=== PATIENT | male | born 1960 ===

== ENCOUNTER 2016-08-01 11:52 | Emergency (ER) | payer SELFPAY ==
--- NOTE | 2016-08-01 13:51 | ED CLINICAL REPORT ---
Clinical Report - Physicians/Mid Levels [facility] [address] [place] [address] 08/01/2016 11:55 [id number] Time Seen: 12:05 Aug 01 2016. Arrived- By private vehicle. Historian- patient. HISTORY OF PRESENT ILLNESS Chief Complaint: Injury to the right middle finger. The injury happened just prior to arrival. Occurred at home. The patient sustained a laceration. Patient is experiencing mild pain. Patient denies injury to the head or neck. ( Sustained lac on corner of metal. Some bleeding. Controlled.). REVIEW OF SYSTEMS The patient sustained a laceration. No tingling or numbness. All systems otherwise negative, except as recorded above. PAST HISTORY The patient's dominant hand is the right. He has not had a prior injury to the same area. Tetanus immunization status is up-to-date. Problems: Diabetes Mellitus. Medications: [id number] Oral, day. MetFORMIN HCl Oral 1000 mg , 2x a day. Allergies: No Known Drug Allergy. SOCIAL HISTORY Never smoker. Alcohol use. No drug use. ADDITIONAL NOTES The nursing notes have been reviewed. PHYSICAL EXAM Vital Signs: 08/01/2016 12:04 BP: 132/77. HR: 80. RR: 20. O2 saturation: 99%. Temp: 98.7 F. Pain level now: 1/10. Appearance: Alert. Head: Head atraumatic. ENT: Ears normal. Nose normal. CVS: Normal heart rate and rhythm. Heart sounds normal. Respiratory: No respiratory distress. Breath sounds normal. No decreased air movement or chest wall injury. Abdomen: No visible injury. Skin: Skin warm. Extremities: Right middle finger: superficial 0.5 cm laceration- SEE LACERATION PROCEDURE NOTE; (at dip at ulnar aspect, partial thickness, good distal rom and sensation, no fb, no erythema). No wrist injury. Neuro, Vascular and Tendons: Vascular status intact. Motor intact. Neuro: Disoriented. PROGRESS AND PROCEDURES Laceration Repair: Time: 13:20 Aug 01 2016. Location: (r. middle finger). Time-out completed immediately before the procedure. Length: 1 cm. Complexity: simple (local anesthesia used and sutured). Wound depth/shape- subcutaneous and linear. Wound is clean. Distal neuro/vascular/tendon status normal. No sensory deficit or motor deficit distally. Anesthesia provided by digital block using 0.50% Marcaine. Prepped with Betadine. Wound explored, cleansed and irrigated. Closure of superficial layer: interrupted 5-0 (4 sutures, non absorb). Post-procedure. Bleeding is controlled and neuro-vascular status is intact distal to the wound. Dressing applied. Tetanus immunization up-to-date. Course of Care: Patient was full range of motion in the ER, no signs of secondary infectious process. Very stable. No signs of foreign body. No osseous tenderness. tetanus up-to-date. Patient is stable. Symptoms better. Patient/family counseled. Disposition: Discharged. CLINICAL IMPRESSION Single superficial laceration to the right middle finger.No foreign body present or right fingernail injury. INSTRUCTIONS Protect wound and keep wound area clean. Keep wounds dry. You may wash wounds briefly, then dry. Apply bacitracin twice daily. Limit use of your right hand for five days. ( [facility]). OTC Medications: Take OTC medications according to label instructions. Available over the counter. Acetaminophen (available over the counter): take according to label instructions. Motrin (available over the counter): take according to label instructions. Follow-up: Follow up with your doctor in seven days for suture removal. (Electronically signed by Vivien Melgoza P.A.-C 08/01/2016 13:21)
--- NOTE | 2016-08-01 13:51 | ED CLINICAL REPORT ---
Clinical Report - Physicians/Mid Levels [facility] [address] [place] [address] 08/01/2016 11:55 [id number] Time Seen: 12:05 Aug 01 2016. Arrived- By private vehicle. Historian- patient. HISTORY OF PRESENT ILLNESS Chief Complaint: Injury to the right middle finger. The injury happened just prior to arrival. Occurred at home. The patient sustained a laceration. Patient is experiencing mild pain. Patient denies injury to the head or neck. ( Sustained lac on corner of metal. Some bleeding. Controlled.). REVIEW OF SYSTEMS The patient sustained a laceration. No tingling or numbness. All systems otherwise negative, except as recorded above. PAST HISTORY The patient's dominant hand is the right. He has not had a prior injury to the same area. Tetanus immunization status is up-to-date. Problems: Diabetes Mellitus. Medications: [id number] Oral, day. MetFORMIN HCl Oral 1000 mg , 2x a day. Allergies: No Known Drug Allergy. SOCIAL HISTORY Never smoker. Alcohol use. No drug use. ADDITIONAL NOTES The nursing notes have been reviewed. PHYSICAL EXAM Vital Signs: 08/01/2016 12:04 BP: 132/77. HR: 80. RR: 20. O2 saturation: 99%. Temp: 98.7 F. Pain level now: 1/10. Appearance: Alert. Head: Head atraumatic. ENT: Ears normal. Nose normal. CVS: Normal heart rate and rhythm. Heart sounds normal. Respiratory: No respiratory distress. Breath sounds normal. No decreased air movement or chest wall injury. Abdomen: No visible injury. Skin: Skin warm. Extremities: Right middle finger: superficial 0.5 cm laceration- SEE LACERATION PROCEDURE NOTE; (at dip at ulnar aspect, partial thickness, good distal rom and sensation, no fb, no erythema). No wrist injury. Neuro, Vascular and Tendons: Vascular status intact. Motor intact. Neuro: Disoriented. PROGRESS AND PROCEDURES Laceration Repair: Time: 13:20 Aug 01 2016. Location: (r. middle finger). Time-out completed immediately before the procedure. Length: 1 cm. Complexity: simple (local anesthesia used and sutured). Wound depth/shape- subcutaneous and linear. Wound is clean. Distal neuro/vascular/tendon status normal. No sensory deficit or motor deficit distally. Anesthesia provided by digital block using 0.50% Marcaine. Prepped with Betadine. Wound explored, cleansed and irrigated. Closure of superficial layer: interrupted 5-0 (4 sutures, non absorb). Post-procedure. Bleeding is controlled and neuro-vascular status is intact distal to the wound. Dressing applied. Tetanus immunization up-to-date. Course of Care: Patient was full range of motion in the ER, no signs of secondary infectious process. Very stable. No signs of foreign body. No osseous tenderness. tetanus up-to-date. Patient is stable. Symptoms better. Patient/family counseled. Disposition: Discharged. CLINICAL IMPRESSION Single superficial laceration to the right middle finger.No foreign body present or right fingernail injury. INSTRUCTIONS Protect wound and keep wound area clean. Keep wounds dry. You may wash wounds briefly, then dry. Apply bacitracin twice daily. Limit use of your right hand for five days. ( [facility]). OTC Medications: Take OTC medications according to label instructions. Available over the counter. Acetaminophen (available over the counter): take according to label instructions. Motrin (available over the counter): take according to label instructions. Follow-up: Follow up with your doctor in seven days for suture removal. (Electronically signed by Vivien Melgoza P.A.-C 08/01/2016 13:21)
--- NOTE | 2016-08-01 13:52 | ED ORDER SUMMARY ---
..... Patient: AKIL FREEMAN OrderSheet [facility] VisitID: [id number] [address] [place] [address] 56y, M Registration Date/Time: 08/01/2016 ORDER SHEET Weight: 115.6 kg (stated) Allergies: No Known Drug Allergy GENERAL ORDERS: Wound Irrigation (12:53 08/01/2016 Ricardo Aguilar) (Ack 13:31 SRoberts R.N.) (19:15 Tiffanie R.Charlene.) MEDICATION ORDERS: IV FLUIDS: ORDER SHEET NOTES: [Electronically signed by Vivien Melgoza P.A.-C (13:21 08/01/2016)] [Electronically signed by Marlen Wells R.N. (19:23 08/01/2016)] [Electronically locked/signed by Marlen Wells R.N. (19:23 08/01/2016)]
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
--- NOTE | 2016-08-01 13:52 | ED ORDER SUMMARY ---
..... Patient: AKIL FREEMAN OrderSheet [facility] VisitID: [id number] [address] [place] [address] 56y, M Registration Date/Time: 08/01/2016 ORDER SHEET Weight: 115.6 kg (stated) Allergies: No Known Drug Allergy GENERAL ORDERS: Wound Irrigation (12:53 08/01/2016 Ricardo Aguilar) (Ack 13:31 SRoberts R.N.) (19:15 Tiffanie R.Charlene.) MEDICATION ORDERS: IV FLUIDS: ORDER SHEET NOTES: [Electronically signed by Vivien Melgoza P.A.-C (13:21 08/01/2016)] [Electronically signed by Marlen Wells R.N. (19:23 08/01/2016)] [Electronically locked/signed by Marlen Wells R.N. (19:23 08/01/2016)]
--- NOTE | 2016-08-01 19:24 | ED MED RECONCILIATION SUMMARY ---
Patient: AKIL FREEMAN Medication Reconciliation Report [facility] VisitID: [id number] [address] [place] [address] 56y, M Registration Date/Time: 08/01/2016 Weight: 115.6 kg Height/Length: 67 in. BMI: 40.0 ALLERGIES: No Known Drug Allergy The patient's Home Medications are listed below: THE FOLLOWING MEDICATIONS NEED TO BE RECONCILED: [id number] Oral, day MetFORMIN HCl Oral 1000 mg , 2x a day The source(s) of the original Home Medication information: patient The following Medications were given to the patient in the Emergency Department: None. The following Medications were prescribed to the patient: Take OTC medications according to label instructions. Available over the counter. -- Vivien Melgoza, P.A.-C Acetaminophen (available over the counter): take according to label instructions. -- Vivien Melgoza, P.A.-C Motrin (available over the counter): take according to label instructions. -- Vivien Melgoza, P.A.-C
--- NOTE | 2016-08-01 19:24 | ED MAR SUMMARY ---
..... Medication Administration Record [facility] [address] [place], [place] [id number] Patient: AKIL FREEMAN Visit ID: [id number] 56y, M Weight: 115.6 kg Height/Length: 67 in BMI: 40 ALLERGIES: No Known Drug Allergy
--- NOTE | 2016-08-01 19:24 | ED MED RECONCILIATION SUMMARY ---
Patient: AKIL FREEMAN Medication Reconciliation Report [facility] VisitID: [id number] [address] [place] [address] 56y, M Registration Date/Time: 08/01/2016 Weight: 115.6 kg Height/Length: 67 in. BMI: 40.0 ALLERGIES: No Known Drug Allergy The patient's Home Medications are listed below: THE FOLLOWING MEDICATIONS NEED TO BE RECONCILED: [id number] Oral, day MetFORMIN HCl Oral 1000 mg , 2x a day The source(s) of the original Home Medication information: patient The following Medications were given to the patient in the Emergency Department: None. The following Medications were prescribed to the patient: Take OTC medications according to label instructions. Available over the counter. -- Vivien Melgoza, P.A.-C Acetaminophen (available over the counter): take according to label instructions. -- Vivien Melgoza, P.A.-C Motrin (available over the counter): take according to label instructions. -- Vivien Melgoza, P.A.-C
--- NOTE | 2016-08-01 19:24 | ED DISCHARGE INSTRUCTIONS ---
Patient: AKIL FREEMAN General Instructions [facility] VisitID: [id number] [place] [address] 56y, M Registration Date/Time: 08/01/2016 Single superficial laceration to the right middle finger.No foreign body present or right fingernail injury. INSTRUCTIONS Protect wound and keep wound area clean. Keep wounds dry. You may wash wounds briefly, then dry. Apply bacitracin twice daily. Limit use of your right hand for five days. ( [facility]). OTC Medications: Take OTC medications according to label instructions. Available over the counter. Acetaminophen (available over the counter): take according to label instructions. Motrin (available over the counter): take according to label instructions. Follow-up: Follow up with your doctor in seven days for suture removal. ADDITIONAL INFORMATION Laceration, Extremity (Sutures, [place], Or Tape) A laceration is a cut through the skin. This will usually require stitches (sutures) or john if it is deep. Minor cuts may be treated with surgical tape closures. Home care The following guidelines will help you care for your laceration at home: Keep the wound clean and dry. If a bandage was applied and it becomes wet or dirty, replace it. Otherwise, leave it in place for the first 24 hours, then change it once a day or as directed. If stitches or john were used, clean the wound daily: After removing the bandage, wash the area with soap and water. Use a wet cotton swab to loosen and remove any blood or crust that forms. After cleaning, keep the wound clean and dry. Talk with your doctor before applying any antibiotic ointment to the wound. Reapply the bandage. You may remove the bandage to shower as usual after the first 24 hours, but do not soak the area in water (no swimming) until the stitches or john are removed. If surgical tape closures were used, keep the area clean and dry. If it becomes wet, blot it dry with a towel. The doctor may prescribe an antibiotic cream or ointment to prevent infection. Do not stop taking this medication until you have finished the prescribed course or the doctor tells you to stop. The doctor may also prescribe medications for pain. Follow the doctors instructions for taking these medications. If you have chronic liver or kidney disease or ever had a stomach ulcer or GI bleeding, talk with your doctor before using these medicines. Follow-up care Follow up with your health care provider. Most skin wounds heal within ten days. However, an infection may sometimes occur despite proper treatment. Therefore, check the wound daily for the signs of infection listed below. Stitches and john should be removed within 714 days. If surgical tape closures were used, you may remove them after 10 days, if they have not fallen off by then. Notify your doctor if you notice persistent numbness or weakness in the injured extremity. (Note:A radiologist will review any X-rays that were taken. We will notify you of any new findings that may affect your care.) When to seek medical care Get prompt medical attention if any of these occur: Increasing pain in the wound Redness, swelling, or pus coming from the wound Fever of 100.4F (38C) or higher, or as directed by your health care provider If stitches or john come apart or fall out before your next appointment If the surgical tape closures fall off within seven days, or the wound edges re-open Bleeding not controlled by direct pressure Laceration: Will There Be A Scar? A laceration is a cut through one or more layers of the skin. The goal of emergency treatment is to clean the wound and close it to prevent infection, control bleeding and speed healing. Cuts heal because the body is able to repair the skin by "sealing" the edges together with collagen, a kind of "skin cement." How deep your cut is, its location on your body, your age and the way your skin heals all determine how visible the final scar will be. Some persons tend to heal with more scar tissue than others. This cut will probably heal similar to other cuts you have had in the past. What You Can Do: There are a few simple things that you can do to limit the amount of scar that forms: 1) PREVENT INFECTION: An infected wound makes a bigger scar. Keep the wound clean and dry. Change the dressing and apply any ointment/cream as directed. 2) MASSAGE THE WOUND:After the stitches have been removed: Use a moisturizing cream or lotion containing Aloe or Vitamin E Oil and gently massage the skin around the wound with your fingertips (wash your hands first!). Do this twice a day for the first two weeks, then once a day for a month. This will increase the flow of oxygen and blood to the wound and prevent excess scar tissue from building up. 3) AVOID SUN EXPOSURE: During the first six months, avoid sun exposure since the scar may sharma a much darker color than the skin around it. When in the sun, use SPF #50 (or greater) sun block on the scar, or cover the area with a hat or clothing. What To Expect: -- The cut will be sealed within 2 days and will be strong within 5-10 days. However, it will take at least SIX MONTHS for it to be fully healed. -- During the FIRST THREE MONTHS, you may notice the scar line getting more red or purple in color. The scar may become raised. The skin around the wound may feel thick and lumpy. -- During the FOURTH TO SIXTH MONTHS, this process begins to reverse. The red and purple color will fade, the scar line flattens, and the skin around it feels more normal. -- In most cases, the way the scar line looks after six months is the way it will remain, although there may be some continued improvement up to one year after the injury. Is There Anything Else That Can Be Done? If you do not like the way the scar looks after six months, a plastic surgeon may be able to perform a "scar revision." If you have any questions or problems as your wound heals, contact your doctor or this facility. We will be glad to assist you. You have been given the following additional information: Laceration, Extrem (Suture, Staple, Or Tape) Laceration, How To Minimize Scar Limit use of your right hand for five days. (Electronically signed by Vivien Melgoza P.A.-C 08/01/2016 13:21)
--- NOTE | 2016-08-01 19:24 | ED MAR SUMMARY ---
..... Medication Administration Record [facility] [address] [place], [place] [id number] Patient: AKIL FREEMAN Visit ID: [id number] 56y, M Weight: 115.6 kg Height/Length: 67 in BMI: 40 ALLERGIES: No Known Drug Allergy
== END 2016-08-01 13:50 | disposition home or self-care (01) ==
LOC: ED SRH 11:52
DX: S61.212A Laceration without foreign body of right middle finger without damage to nail, initial encounter (principal); W26.8XXA Contact with other sharp object(s), not elsewhere classified, initial encounter; Y93.9 Activity, unspecified; Y92.009 Unspecified place in unspecified non-institutional (private) residence as the place of occurrence of the external cause; Y99.9 Unspecified external cause status; E11.628 Type 2 diabetes mellitus with other skin complications; Z79.84 Long term (current) use of oral hypoglycemic drugs